=== PATIENT | male | born 2000 | race Caucasian/White ===

== ENCOUNTER 2023-08-09 07:26 | Emergency (ER) | payer MEDICAID ==
[~2023-08-09] VITALS: Ht 167.6 cm; Wt 68.0 kg
[2023-08-09 07:43] VITALS: O2SAT 99
[2023-08-09] MEDS ORDERED: BACITRACIN ZINC OINT UDPKT TOP ONE (08:30)
[2023-08-09] MEDS ORDERED: LIDOCAINE HCL/EPINEPHRINE 1%-EPI 1:100,000 20 ML VIAL INFIL ONE (08:30)
[2023-08-09] MEDS ORDERED: BACITRACIN ZINC OINT UDPKT TOP NR (08:45)
[2023-08-09] MEDS ORDERED: LIDOCAINE HCL/EPINEPHRINE 1%-EPI 1:100,000 10 ML VIAL INFIL NR (08:45)
[2023-08-09 09:56] VITALS: BP 126/78; PULSE 116; RESP 25; TEMP 97.5
== END 2023-08-09 09:59 | disposition home or self-care (01) ==
LOC: ER 08:15
DX: S01.111A Laceration without foreign body of right eyelid and periocular area, initial encounter (principal); R51.9 Headache, unspecified; Y04.0XXA Assault by unarmed brawl or fight, initial encounter; Y93.89 Activity, other specified; Y92.89 Other specified places as the place of occurrence of the external cause; Y99.8 Other external cause status
CPT/HCPCS: 99284; 70450; 12013; J3490